=== PATIENT | female | born 1955 | race Caucasian/White ===

== ENCOUNTER → 2017-03-13 | Outpatient (CLI) | payer OTHER ==
[~2017-03-13] MED LIST: ALBU90OI INH; AZAT50 PO; Advair Hfa 230-12 GM INH; CALCA500CH PO; FLUO.01TC TOP; FURO20 PO; METF500 PO; METO10 PO; METO50ER PO; NAPR500 PO; POTA8 PO; Protopic100 G1 TP; TRIHYD5075 PO; [UNRECOGNIZED DRUG - OTHER] IM
== END ==
LOC: LAB SHORT 16:43
DX: N39.0 Urinary tract infection, site not specified (principal)
CPT/HCPCS: 87086

== ENCOUNTER → 2017-03-17 | Outpatient (CLI) | payer OTHER ==
[2017-03-17 18:02] LABS: Protein, Urine Random 12.1 mg/dL (0.0-11.9)
== END | disposition home or self-care (01) ==
LOC: OLS 16:29
PROVIDERS: Internal Medicine
DX: N18.3 Chronic kidney disease, stage 3 (moderate) (principal)
CPT/HCPCS: 82570; 84156

== ENCOUNTER → 2018-08-12 | Outpatient (CLI) | payer OTHER | END | disposition home or self-care (01) | LOC: LAB SHORT 15:31 → LAB EV 15:31 | DX: N39.0 Urinary tract infection, site not specified (principal) | CPT/HCPCS: 87086 ==

== ENCOUNTER → 2019-08-06 | Outpatient (CLI) | payer MEDICARE ==
[2019-08-06 14:48] LABS: Source, Urine Clean Catch
[2019-08-06 15:08] LABS: Bacteria Few /hpf; Squamous Epithelial Cells Many /hpf (Few)
== END | disposition home or self-care (01) ==
LOC: LAB SHORT 14:45 → LAB EV 14:45
PROVIDERS: General Practice
DX: N39.0 Urinary tract infection, site not specified (principal)
CPT/HCPCS: 81015; 87086

== ENCOUNTER → 2020-12-11 | Outpatient (CLI) | payer MEDICARE | END | disposition home or self-care (01) | LOC: LAB 14:25 → LAB SHORT 14:25 | DX: R30.9 Painful micturition, unspecified (principal) | CPT/HCPCS: 87077; 87086; 87186 ==

== ENCOUNTER → 2021-01-13 | Outpatient (CLI) | payer MEDICARE ==
[2021-01-25 16:09] LABS: COLOR Orange (.); SIZE 9x7 mm (.); URIC ACID 100 % (.); WEIGHT 251 mg (.)
== END | disposition home or self-care (01) ==
LOC: LAB SHORT 13:00 → LAB FUT 01-15 16:25
PROVIDERS: Internal Medicine
DX: N17.9 Acute kidney failure, unspecified (principal); N18.31 Chronic kidney disease, stage 3a
CPT/HCPCS: 82365

== ENCOUNTER → 2021-05-14 | Outpatient (CLI) | payer MEDICARE ==
[~2021-05-14] MED LIST changes: +ALBU8HFA2; +ATOR40TA; +AZAT50; +GLIP2.5ER; +HAIR, SKIN AND1 EAC1; +HYDCHL25
[2021-05-14 14:45] LABS: Source, Urine Clean Catch
[2021-05-14 15:17] LABS: Bilirubin, Urine Neg (Neg); Blood, Urine Neg (Neg); Glucose Qualitative, Urine Neg (Neg); Ketones, Urine Neg (Neg); Leukocyte Esterase, Urine Neg (Neg); Nitrite, Urine Pos (Neg); Protein, Urine 2+ (Neg); Specific Gravity, Urine 1.025 (1.003-1.022); Urobilinogen, Urine NORM (Normal)
[2021-05-14 15:21] LABS: Amorphous Light (0-Heavy); Appearance, Urine Hazy (Clear); Bacteria Rare /hpf; Color, Urine Pale Yellow (P-Yellow); Red Blood Cells, Urine 0-2 /hpf (0-2); Squamous Epithelial Cells Rare /hpf (Few); White Blood Cells, Urine 0-2 /hpf (0-5)
[2021-05-14 15:29] LABS: Creatinine, Urine Random 71.4 mg/dL (27.00-270.00); Protein, Urine Random 13.4 mg/dL (0.0-11.9); Protein/Creat Ratio, Ur Random 0.2
== END | disposition home or self-care (01) ==
LOC: LAB SHORT 14:43
PROVIDERS: Internal Medicine Nephrology
DX: N18.31 Chronic kidney disease, stage 3a (principal)
CPT/HCPCS: 81001; 82570; 84156

== ENCOUNTER → 2022-06-18 | Outpatient (CLI) | payer MEDICARE | END | disposition home or self-care (01) | LOC: LAB SHORT 14:33 → LAB 14:33 | DX: C44.319 Basal cell carcinoma of skin of other parts of face (principal) | CPT/HCPCS: 88305 ==

== ENCOUNTER → 2023-05-18 | Outpatient (CLI) | payer MEDICARE | LOC: LAB SHORT 14:35 → LAB 14:35 | DX: C44.319 Basal cell carcinoma of skin of other parts of face (principal) | CPT/HCPCS: 88305 ==

== ENCOUNTER 2024-01-11 07:27 | Day surgery (SDC) | payer MEDICARE ==
[~2024-01-11] VITALS: Ht 165.1 cm; Wt 115.0 kg
--- NOTE | 2024-01-11 07:13 | NUR ---
01/11/24 [address] DR[address] JONES, SEE ANESTHESIA RECORDS.
[~2024-01-11 07:27] MED LIST changes: +Crestor40 MG PO; +DUPIXENT300 MG/21 SC; +FOLI1; +HYDCHL25 PO; +JARDIANCE25 MG PO; +Lactated Ringer's 1,000 ML IV SCH; +METF500C PO; +METTREX2.5 PO; +OZEMPIC0.25 MG/02 SC; +VIT D2-K1 20-1259 ML
[2024-01-11] MEDS ORDERED: propofoL 50 ML IV ONE (08:46)
[2024-01-11 08:53] VITALS: BP 147/81
--- NOTE | 2024-01-11 08:58 | NUR ---
History, Chart, Medications and Allergies reviewed before start of procedure. Patient confirms NPO status and agrees with scheduled surgery. Patient States Post-Procedure ride home has been arranged with [place] friend.
[2024-01-11 09:48] VITALS: BP 126/62
[2024-01-11 10:05] VITALS: BP 112/75
--- NOTE | 2024-01-11 10:06 | NUR ---
Discharge instructions reviewed with patient. Patient verbalizes understanding. Copy given to patient to take home. Patient States Post-Procedure ride home has been arranged.
== END 2024-01-11 10:07 | disposition home or self-care (01) ==
LOC: ORSCMMR 07:27 → ORD 09:00 → ORSCMMR 09:00
PROVIDERS: Internal Medicine Gastroenterology
PROC: 0DJD8ZZ Inspection of Lower Intestinal Tract, Via Natural or Artificial Opening Endoscopic (ICD-10-PCS; principal; 2024-01-11 09:00)
DX: K63.5 Polyp of colon (principal); Z86.0101 Personal history of adenomatous and serrated colon polyps; K57.30 Diverticulosis of large intestine without perforation or abscess without bleeding; J45.909 Unspecified asthma, uncomplicated; K64.8 Other hemorrhoids; G47.33 Obstructive sleep apnea (adult) (pediatric); I10 Essential (primary) hypertension; E11.9 Type 2 diabetes mellitus without complications; E66.9 Obesity, unspecified; Z68.41 Body mass index [BMI] 40.0-44.9, adult; Z79.85 Long-term (current) use of injectable non-insulin antidiabetic drugs; Z79.84 Long term (current) use of oral hypoglycemic drugs; Z79.899 Other long term (current) drug therapy
CPT/HCPCS: 82947; J2704; J7120